=== PATIENT | male | born 1945 | race Caucasian/White ===

== ENCOUNTER → 2016-10-26 | Day surgery (SDC) | payer MEDICARE ==
[~2016-10-26] MED LIST: ASPI325T PO; ATOR20TA15 PO; BUPIVACAINE/EPINEPHRINE 0.5% PF 10 ML VIAL ONE; IBUP200T PO; IBUP200T2 PO; KETOROLAC TROMETHAMINE 30 MG/ML (IVP) VIAL IV PUSH ONE; LACTATED RINGER'S 1000 ML INJ 1,000 ML IV ONE; LACTATED RINGER'S 1000 ML INJ 1,000 ML ONE; LIDOCAINE 1%/EPINEPHrine 1:100,000 SOLN 20 ML VIAL ONE; MIDAZOLAM HCL 2 MG/2 ML VIAL ONE; ONDANSETRON HCL 4 MG/2 ML VIAL IV PUSH ONE; PANT40TA3 PO; PROP80TA PO; PROPOFOL 200 MG/20 ML AMP IV ONE; SUMA100T2 PO; TAMS5CAP PO; ceFAZolin 2 GM PREMIX 50 ML ONE
--- NOTE | 2016-10-26 12:56 | TN ---
cc: BARBARA HERMAN M.D. DATE OF SURGERY: 10/26/2016 PREOPERATIVE DIAGNOSIS Right groin inguinodynia, right testicular pain status post open repair right inguinal hernia with mesh plug in 2011. POSTOPERATIVE DIAGNOSIS Right groin inguinodynia, right testicular pain status post open repair right inguinal hernia with mesh plug in 2012. PROCEDURE Open exploration right groin, removal of mesh, suture and mesh plug; open repair of inguinal floor with absorbable suture. SURGEON Dr. Barbara Herman ASSISTANT [employer] Lorena Suárez, MS III ANESTHESIA General. INDICATIONS This is a very pleasant 71-year-old gentleman who is from [place] and had undergone open repair of a right inguinal hernia with plug and patch in 2011. He experienced pain post-op that never resolved despite local injections with steroid and local anesthesia. He has located here in the [facility] and I initially saw him in early October. He attempted another steroid local anesthetic injection which lasted for four or five days of relief but he now has debilitating discomfort in the right groin and right testicular discomfort, feels like his testicle is being squeezed. He wants the mesh removed. We discussed potential worsening of the pain, no improvement in the pain, or possible hopeful improvement in the pain. INTRAOPERATIVE FINDINGS Dense scar around a plug which was placed into the internal inguinal ring which created a dense scar contracted reaction of the spermatic cord and its contents. These were able to be released from the mesh plug and the mesh plug removed in its entirety. An additional small amount of flat mesh and Prolene sutures were removed and excised, relieving any scar to the spermatic cord. There was then loss of integrity of the inguinal floor of both the internal inguinal ring and there was no mesh covering the inguinal floor medially adjacent to the pubic tubercle. Primary repair with absorbable suture was performed. ESTIMATED BLOOD LOSS Less than 5 mL. DESCRIPTION OF PROCEDURE IN DETAIL The patient was identified as Reno Gimenez, taken to the operating room and placed in supine position. Sequential compression devices were placed on bilateral lower extremities. Following induction of adequate general anesthesia with a laryngeal mask the right groin was prepped and draped in the usual sterile fashion with Betadine. A timeout procedure was performed. Following completion of the timeout procedure to everyone's satisfaction within the room, the previous right groin incision was opened with a scalpel and hemostasis controlled with electrocautery. Dissection continued posteriorly through scar tissue down to the level of the external oblique fascia. More scar tissue was encountered. A generous portion of local anesthetic was placed beneath the external oblique fascial fibers that were opened in their direction using scalpel and Metzenbaum scissor. The spermatic cord and its contents were densely adherent to scar tissue and mesh. They were from surrounding tissues at the level of the pubic tubercle and isolated with a [place] drain. Careful dissection using blunt and sharp dissection with Metzenbaum scissors and when the mesh was encountered using electrocautery directly on the mesh to separate it from surrounding tissues. Meticulous dissection of the spermatic cord and its contents from the mesh without injury was performed. The mesh was removed and no further mesh material was left adjacent to the spermatic cord. A very small margin of mesh along the inferolateral inguinal ligament was left alone. The spermatic cord was examined intently. A great deal of local anesthetic was placed in and around the structure of the spermatic cord. The genital branch and genitofemoral nerve could not be specifically identified, but nevertheless the contents were completely relieved from the spermatic cord. There was obvious lack of integrity of the inguinal floor at the level of the internal ring and medially adjacent to the pubic tubercle. The fascia of the internal oblique muscle was then sutured down with interrupted 2-0 PDS sutures down to the shelving edge of the inguinal ligament inferolaterally and medial to the spermatic cord down to Chiki's ligament and the shelving edge of the inguinal ligament inferiorly and medially. A great deal of irrigation ensued. There was no evidence of bleeding. The spermatic cord structures again were anesthetized with local anesthetic. The external oblique fascia was then closed with running 2-0 Vicryl taking care not to include any nerve tissue. 2-0 Vicryl was placed in Rick's fascia and skin was approximated with running 4-0 Monocryl subcuticular suture. Dressings were applied with Mastisol, half-inch brown Steri-Strips, gauze and Tegaderm. The patient tolerated the procedure without apparent complication. Sponge, needle and instrument counts were correct at the end of the case. Barbara Herman MD DGR/BT /12:29 PM /12:49 PM
== END | disposition home or self-care (01) ==
LOC: ESDC 09:12
PROVIDERS: ATTEND Surgery Trauma Surgery
DX: K40.91 Unilateral inguinal hernia, without obstruction or gangrene, recurrent (principal); N50.811 Right testicular pain; R10.31 Right lower quadrant pain
CPT/HCPCS: 00830; 49520; 88302; J0690; J1885; J2250; J2405; J3010; J7120; 88300